=== PATIENT | female | born 1955 | race Caucasian/White ===

== ENCOUNTER 2024-05-29 15:49 | Outpatient (CLI) | payer MEDICARE | END 2024-05-29 15:50 | disposition home or self-care (01) | LOC: CSHMRI 15:49 | PROVIDERS: ATTEND Nurse Practitioner Family | DX: M43.16 Spondylolisthesis, lumbar region (principal); M47.26 Other spondylosis with radiculopathy, lumbar region; M54.59 Other low back pain; M84.38XA Stress fracture, other site, initial encounter for fracture; Z98.890 Other specified postprocedural states | CPT/HCPCS: 72100; 72148 ==